=== PATIENT | male | born 1985 | race Hispanic/Latino ===

== ENCOUNTER 2020-07-12 15:09 | Emergency (ER) | payer OTHER ==
[~2020-07-12] VITALS: Ht 165.1 cm; Wt 79.4 kg
[2020-07-12] MEDS ORDERED: KETOROLAC TROMETHAMINE 60 MG/2 ML VIAL IM ONE (15:45)
[2020-07-12] MEDS ORDERED: TETANUS/DIPHTHERIA TOX ADULT 0.5 ML SYR IM ONE (15:45)
[2020-07-12] MEDS ORDERED: HYDROCODONE/APAP 7.5MG-325MG 1 EA TAB PO ONE (16:00)
[2020-07-12] MEDS ORDERED: KETOROLAC TROMETHAMINE 30 MG/ML VIAL IV STA (16:00)
[2020-07-12] MEDS ORDERED: NEOMYCIN/POLYMYX/BACITR OINT 0.9 GM PKT ONE (16:10)
[2020-07-13] MEDS ORDERED: TYLENOL # 31 EA PO (10:00)
== END 2020-07-12 16:20 | disposition home or self-care (01) ==
LOC: ER 16:15
DX: S61.012A Laceration without foreign body of left thumb without damage to nail, initial encounter (principal); W45.8XXA Other foreign body or object entering through skin, initial encounter; Y99.0 Civilian activity done for income or pay
CPT/HCPCS: 73130; 90471; 90714; 99283; J1885

== ENCOUNTER → 2020-07-13 | Day surgery (SDC) | payer OTHER ==
[~2020-07-13] MED LIST: BUPIVACAINE HCL 0.5% INJ 30 ML VIAL INJ ONE; CEFAZOLIN SOD 1 GM/NS 50ML 50 ML IV ONE; LIDOCAINE HCL 2% LOCAL INJ 5 ML SDV VIAL INJ ONE; PROPOFOL IV EMULSION 10 MG/ML 20 ML VIAL ONE; SEVOFLURANE INHAL SOLN 250 ML PEN BTL ONE; TYLENOL # 31 EA PO
[2020-07-13 12:30] VITALS: BP 119/77
== END | disposition home or self-care (01) ==
LOC: OR 06:42
PROVIDERS: ATTEND Plastic Surgery
DX: S67.02XA Crushing injury of left thumb, initial encounter (principal); S62.522B Displaced fracture of distal phalanx of left thumb, initial encounter for open fracture; X58.XXXA Exposure to other specified factors, initial encounter; Z20.822 Contact with and (suspected) exposure to COVID-19
CPT/HCPCS: 11760; 26765; J0690; U0002; J2001